=== PATIENT | male | born 1950 | race Caucasian/White ===

== ENCOUNTER 2016-08-16 03:18 | Emergency (ER) | payer MEDICARE, MEDICAID ==
[~2016-08-16] VITALS: Ht 167.6 cm; Wt 78.0 kg
[~2016-08-16 03:18] MED LIST: CELL5 PO; FURO20TA4 PO; HYDR-4134 PO; MAGN400C PO; OMEP20CA10 PO; PANT40TA4 PO; PRAV10TA35 PO; PRED5TAB48 PO; PROG1 PO; TERA2CAP53 PO
[2016-08-16] MEDS ORDERED: ACETAMINOPHEN WITH CODEINE 300/30MG TABLET PO STA (03:52)
[2016-08-16 04:08] LABS: BASOPHILS % 0.9 % (0.0-2.0); EOSINOPHILS % 0.7 % (0.0-5.0); HEMATOCRIT. 43.3 % (42.0-52.0); HEMOGLOBIN. 14.2 g/dL (14.0-18.0); LYMPHOCYTES % 22.7 % (20.0-50.0); MEAN CORPUSCULAR HEMOGLOBIN 29.2 pg (28.0-32.0); MEAN CORPUSCULAR HGB CONC 32.9 g/dL (31.0-37.0); MEAN CORPUSCULAR VOLUME 88.9 fL (80.0-94.0); MEAN PLATELET VOLUME 8.4 fl (7.4-10.4); MONOCYTES % 12.2 % (2.0-8.0); NEUTROPHILS % 63.5 % (40.0-76.0); PLATELET 149 x1000/uL (130-400); RED BLOOD CELL COUNT 4.87 mill/uL (4.7-6.1); RED CELL DISTRIBUTION WIDTH 13.9 % (11.6-14.6); WHITE BLOOD COUNT 4.5 x1000/uL (4.5-11.0)
[2016-08-16 04:22] LABS: ALANINE AMINOTRANSFERASE 21 IU/L (13-61); ALBUMIN 3.7 g/dL (3.4-5.0); ANION GAP 14; CALCIUM 9.8 mg/dL (8.5-10.1); CARBON DIOXIDE 27 mEq/L (21-32); CHLORIDE 105 mEq/L (98-107); INDEX HEMOLYSI 2 (1-3); INDEX ICTERIC 1 (1-4); INDEX LIPEMIC 1 (1-3); UREA NITROGEN BLOOD 17 mg/dL (7-21); eGFR 47 mL/min (>60)
[2016-08-16] MEDS ORDERED: MORPHINE SULFATE 10 MG/ML CPJ IM ONE (05:30)
[2016-08-16 05:47] VITALS: BP 156/81
== END 2016-08-16 06:24 | disposition home or self-care (01) ==
LOC: ER 03:18
DX: R51 Headache (principal); N28.9 Disorder of kidney and ureter, unspecified; I11.9 Hypertensive heart disease without heart failure; Z99.2 Dependence on renal dialysis; Z94.0 Kidney transplant status; Z79.899 Other long term (current) drug therapy
CPT/HCPCS: 36415; 70450; 80053; 85025; 96372; 99285; J2270

== ENCOUNTER 2017-04-19 19:44 | Emergency (ER) | payer MEDICARE, MEDICAID ==
[~2017-04-19] VITALS: Ht 167.6 cm; Wt 75.0 kg
[~2017-04-19 19:44] MED LIST changes: +TERA2CAP4 PO; -TERA2CAP53 PO
[2017-04-20] MEDS ORDERED: ONDANSETRON 4MG ODT PO ONE (01:15)
[2017-04-20] MEDS ORDERED: MORPHINE SULFATE 4 MG/ML CPJ (NOT FOR IM USE) IV ONE (01:15)
[2017-04-20 04:06] VITALS: BP 129/65
== END 2017-04-20 04:08 | disposition home or self-care (01) ==
LOC: ER 19:44
DX: S83.8X1A Sprain of other specified parts of right knee, initial encounter (principal); M25.461 Effusion, right knee; I13.10 Hypertensive heart and chronic kidney disease without heart failure, with stage 1 through stage 4 chronic kidney disease, or unspecified chronic kidney disease; N18.9 Chronic kidney disease, unspecified; Z94.0 Kidney transplant status; Z98.41 Cataract extraction status, right eye; Z98.42 Cataract extraction status, left eye; X58.XXXA Exposure to other specified factors, initial encounter; Y93.01 Activity, walking, marching and hiking; Y92.018 Other place in single-family (private) house as the place of occurrence of the external cause
CPT/HCPCS: 73562; 93970; 96374; 99284; J2270; L1830; Q0162

== ENCOUNTER 2017-09-08 08:24 | Day surgery (SDC) | payer MEDICARE, MEDICAID ==
[~2017-09-08] VITALS: Ht 160 cm; Wt 62.0 kg
[2017-09-08 09:30] LABS: BASOPHILS % 0.5 % (0.0-2.0); EOSINOPHILS % 0.8 % (0.0-5.0); HEMATOCRIT. 41.9 % (42.0-52.0); HEMOGLOBIN. 13.8 g/dL (14.0-18.0); LYMPHOCYTES % 21.9 % (20.0-50.0); MEAN CORPUSCULAR HEMOGLOBIN 29.6 pg (28.0-32.0); MEAN CORPUSCULAR VOLUME 89.8 fL (80.0-94.0); MEAN PLATELET VOLUME 8.1 fl (7.4-10.4); MONOCYTES % 13.9 % (2.0-8.0); NEUTROPHILS % 62.9 % (40.0-76.0); PLATELET 162 x1000/uL (130-400); RED BLOOD CELL COUNT 4.67 mill/uL (4.7-6.1); RED CELL DISTRIBUTION WIDTH 16.1 % (11.6-14.6)
[2017-09-08 09:36] LABS: INR 1.1; PARTIAL THROMBOPLASTIN TIME 27.6 sec (23.4-31.0); PROTHROMBIN TIME 11.9 sec (9.4-11.6)
[2017-09-08] MEDS ORDERED: SIMETHICONE 40 MG/0.6 ML 30ML ONE (09:53)
[2017-09-08] MEDS ORDERED: SODIUM CHLORIDE 0.9% 1,000 ML IV SCH (10:00)
[2017-09-08] MEDS ORDERED: PROPOFOL 200MG/20ML VIAL IV ONE ×2 (11:08→11:43)
[2017-09-08] MEDS ORDERED: ALLO100T PO (14:47)
[2017-09-08] MEDS ORDERED: METO25TA6 PO (14:47)
[2017-09-08] MEDS ORDERED: NEBI5TAB3 PO (14:47)
[2017-09-08] MEDS ORDERED: AMLO10TA80 PO (14:47)
== END 2017-09-08 16:30 | disposition home or self-care (01) ==
LOC: OR 08:24
PROVIDERS: ATTEND Internal Medicine Gastroenterology
DX: D12.0 Benign neoplasm of cecum (principal); D12.3 Benign neoplasm of transverse colon; K52.89 Other specified noninfective gastroenteritis and colitis; F32.89 Other specified depressive episodes; I12.0 Hypertensive chronic kidney disease with stage 5 chronic kidney disease or end stage renal disease; N18.6 End stage renal disease; M19.90 Unspecified osteoarthritis, unspecified site; Z94.0 Kidney transplant status; Z98.42 Cataract extraction status, left eye; Z98.41 Cataract extraction status, right eye; Z79.899 Other long term (current) drug therapy; Z98.890 Other specified postprocedural states
CPT/HCPCS: 36415; 45380; 45385; 80048; 85025; 85610; 85730; 88305; 93005; J7120; J2704

== ENCOUNTER 2018-11-08 09:28 | Day surgery (SDC) | payer MEDICARE, MEDICAID ==
[~2018-11-08] VITALS: Ht 160 cm; Wt 73.0 kg
[~2018-11-08 09:28] MED LIST changes: +ALLO100T PO; +AMLO10TA80 PO; +METO25TA6 PO; +NEBI5TAB3 PO; -OMEP20CA10 PO; +OMEP20CA5 PO
[2018-11-08] MEDS ORDERED: DEXAMETHASONE 4MG/ML 1ML VIAL ONE (11:18)
[2018-11-08] MEDS ORDERED: TRIAMCINOLONE ACETONIDE 40MG/ML 1ML VIAL ONE (11:18)
[2018-11-08] MEDS ORDERED: GENTAMICIN SULF 40MG/ML 2ML VIAL ONE (11:19)
[2018-11-08] MEDS ORDERED: LIDOCAINE HCL 1% 20ML VIAL (Pyxis) INJ ONE (11:19)
[2018-11-08] MEDS ORDERED: BACITRACIN 15GM TUBE TOP ONE (11:19)
[2018-11-08] MEDS ORDERED: BUPIVACAINE HCL/PF 0.5% (5MG/ML) 10ML ONE (11:20)
[2018-11-08] MEDS ORDERED: LACTATED RINGERS 1,000 ML IV SCH (12:15)
[2018-11-08] MEDS ORDERED: MIDAZOLAM HCL 2 MG/2 ML VIAL ONE (13:14)
[2018-11-08] MEDS ORDERED: PROPOFOL 200MG/20ML VIAL IV ONE (13:14)
[2018-11-08] MEDS ORDERED: FENTANYL CITRATE/PF 50MCG/ML 2ML VIAL ONE (13:14)
== END 2018-11-08 16:30 | disposition home or self-care (01) ==
LOC: OR 09:28
PROVIDERS: ATTEND Podiatrist Foot & Ankle Surgery
DX: M79.89 Other specified soft tissue disorders (principal); M72.2 Plantar fascial fibromatosis; M79.605 Pain in left leg; I12.0 Hypertensive chronic kidney disease with stage 5 chronic kidney disease or end stage renal disease; E11.22 Type 2 diabetes mellitus with diabetic chronic kidney disease; N18.6 End stage renal disease; E78.00 Pure hypercholesterolemia, unspecified; Z94.0 Kidney transplant status; Z79.899 Other long term (current) drug therapy; Z83.3 Family history of diabetes mellitus; Z82.49 Family history of ischemic heart disease and other diseases of the circulatory system; Z80.8 Family history of malignant neoplasm of other organs or systems
CPT/HCPCS: 27619; 88304; 88312; J1100; J1580; J2250; J2704; J3010; J3490; J3301

== ENCOUNTER → 2019-10-14 | Outpatient (CLI) | payer MEDICARE, MEDICAID ==
[~2019-10-14] MED LIST changes: +OMEP20CA14 PO; -OMEP20CA5 PO
== END | disposition home or self-care (01) ==
LOC: LAB 10:34
PROVIDERS: ATTEND Internal Medicine Gastroenterology
DX: Z01.818 Encounter for other preprocedural examination (principal); Z11.59 Encounter for screening for other viral diseases
CPT/HCPCS: U0003-CS

== ENCOUNTER 2019-10-18 09:32 | Day surgery (SDC) | payer MEDICARE, MEDICAID ==
[~2019-10-18] VITALS: Ht 160 cm; Wt 72.6 kg
[~2019-10-18 09:32] MED LIST changes: +LACTATED RINGERS 1,000 ML IV SCH
[2019-10-18 10:27] LABS: HEMATOCRIT 41.9 % (42.0-52.0); HEMOGLOBIN 14.1 g/dL (14.0-18.0); MEAN CORPUSCULAR HEMOGLOBIN 30.6 pg (28.0-32.0); MEAN CORPUSCULAR VOLUME 90.8 fL (80.0-94.0); PLATELET 129 x1000/uL (130-400); RED BLOOD CELL COUNT 4.61 mill/uL (4.7-6.1); RED CELL DISTRIBUTION WIDTH 14.8 % (11.6-14.6)
[2019-10-18] MEDS ORDERED: FENTANYL CITRATE/PF 50MCG/ML 2ML VIAL IV PRN (14:30)
[2019-10-18] MEDS ORDERED: DIAZEPAM 5 MG/ML 2ML CPJ IV PRN (14:33)
[2019-10-18] MEDS ORDERED: MIDAZOLAM HCL 5 MG/5 ML VIAL ONE (14:33)
[2019-10-18] MEDS ORDERED: DIPHENHYDRAMINE 50MG/ML VIAL ONE (14:34)
[2019-10-18] MEDS ORDERED: DIAZEPAM 5 MG/ML 2ML CPJ ONE ×2 (14:34→14:44)
[2019-10-18] MEDS ORDERED: FENTANYL CITRATE/PF 50MCG/ML 2ML VIAL ONE ×2 (14:34→14:44)
[2019-10-18] MEDS ORDERED: MIDAZOLAM HCL 5 MG/5 ML VIAL IV PRN (14:48)
[2019-10-18] MEDS ORDERED: SIMETHICONE 80MG TABLET CHEW PO PRN (17:30)
[2019-10-18] MEDS ORDERED: HYDRALAZINE HCL 25MG TABLET PO NR (17:30)
== END 2019-10-18 18:55 | disposition home or self-care (01) ==
LOC: OR 09:32
PROVIDERS: ATTEND Internal Medicine Gastroenterology
DX: Z12.11 Encounter for screening for malignant neoplasm of colon (principal); K64.8 Other hemorrhoids; D12.2 Benign neoplasm of ascending colon; K63.89 Other specified diseases of intestine; I12.0 Hypertensive chronic kidney disease with stage 5 chronic kidney disease or end stage renal disease; N18.6 End stage renal disease; Z79.899 Other long term (current) drug therapy; Z98.890 Other specified postprocedural states; Z86.010 Personal history of colon polyps; Z82.49 Family history of ischemic heart disease and other diseases of the circulatory system; Z83.3 Family history of diabetes mellitus
CPT/HCPCS: 36415; 45380; 80048; 85027; 88305; J2250; J3010; 99152; 99153; J1200; G0500

== ENCOUNTER 2020-01-17 19:42 | Emergency (ER) | payer MEDICARE, MEDICAID ==
[~2020-01-17] VITALS: Ht 162.6 cm; Wt 83.0 kg
[~2020-01-17 19:42] MED LIST changes: -LACTATED RINGERS 1,000 ML IV SCH
[2020-01-17 19:48] VITALS: BP 157/78
[2020-01-17] MEDS ORDERED: SODIUM CHLORIDE 0.9% 500 ML IV ONE (21:30)
[2020-01-17 21:41] LABS: BASOPHILS % 0.3 % (0.0-2.0); EOSINOPHILS % 0.2 % (0.0-5.0); HEMATOCRIT. 41.9 % (42.0-52.0); HEMOGLOBIN. 13.8 g/dL (14.0-18.0); LYMPHOCYTES % 10.2 % (20.0-50.0); MEAN CORPUSCULAR HEMOGLOBIN 29.8 pg (28.0-32.0); MEAN CORPUSCULAR VOLUME 90.9 fL (80.0-94.0); MEAN PLATELET VOLUME 8.3 fl (7.4-10.4); MONOCYTES % 10.4 % (2.0-8.0); NEUTROPHILS % 78.9 % (40.0-76.0); PLATELET 129 x1000/uL (130-400); RED BLOOD CELL COUNT 4.62 mill/uL (4.7-6.1); RED CELL DISTRIBUTION WIDTH 15.3 % (11.6-14.6)
[2020-01-17 21:46] LABS: CHLORIDE 112 mEq/L (98-107)
[2020-01-17] MEDS ORDERED: ASPIRIN 81MG TABLET PO ONE (22:30)
== END 2020-01-17 23:40 | disposition home or self-care (01) ==
LOC: ER 19:42
DX: R00.2 Palpitations (principal); I12.9 Hypertensive chronic kidney disease with stage 1 through stage 4 chronic kidney disease, or unspecified chronic kidney disease; N18.9 Chronic kidney disease, unspecified; Z79.899 Other long term (current) drug therapy; Z94.0 Kidney transplant status; Z98.890 Other specified postprocedural states
CPT/HCPCS: 36415; 71045; 80053; 83880; 84484; 85025; 85610; 93005; 96360; 99285; J7040

== ENCOUNTER 2021-04-23 11:58 | Inpatient (IN) | payer MEDICARE, MEDICAID ==
[~2021-04-23] VITALS: Ht 162.6 cm; Wt 65.3 kg
[~2021-04-23 11:58] MED LIST changes: -PANT40TA4 PO; +PANT40TA51 PO; -PROG1 PO; +TACR1CAP2 PO
[2021-04-23] MEDS ORDERED: SODIUM CHLORIDE 0.9% 1,000 ML IV ONE (12:45)
[2021-04-23 14:18] LABS: HEMATOCRIT. 35.5 % (42.0-52.0); HEMOGLOBIN. 11.4 g/dL (14.0-18.0); MEAN CORPUSCULAR HEMOGLOBIN 30.7 pg (28.0-32.0); MEAN CORPUSCULAR VOLUME 95.2 fL (80.0-94.0); MEAN PLATELET VOLUME 9.7 fl (7.4-10.4); PLATELET 136 x1000/uL (130-400); RED BLOOD CELL COUNT 3.73 mill/uL (4.7-6.1); RED CELL DISTRIBUTION WIDTH 15.8 % (11.6-14.6)
[2021-04-23 14:22] LABS: CHLORIDE 99 mEq/L (98-107)
[2021-04-23 14:53] LABS: NUCLEATED RED BLOOD CELLS 1 /100 WBC
[2021-04-23 14:54] LABS: PLATELET ESTIMATE NORMAL
[2021-04-23 16:58] LABS: CLARITY URINE CLEAR (CLEAR); COLOR URINE YELLOW (YELLOW); KETONES URINE 3+ (NEGATIVE); LEUKOCYTE ESTERASE URINE NEGATIVE (NEGATIVE); NITRITE URINE NEGATIVE (NEGATIVE); OCCULT BLOOD URINE NEGATIVE (NEGATIVE); PROTEIN URINE NEGATIVE (NEGATIVE); SPECIFIC GRAVITY URINE 1.022 (1.005-1.030); UROBILINOGEN URINE 0.2 E.U./dL (0.2-1.0)
[2021-04-23] MEDS ORDERED: DEXTROSE 50% WATER 50ML SYRINGE IV PRN (17:45)
[2021-04-23] MEDS ORDERED: INSULIN LISPRO 100 UNITS/ML SUBCUT SCH ×2 (18:20→23:00)
[2021-04-23] MEDS: ENOXAPARIN 40MG/0.4ML SYR SUBCUT SCH (21:50)
[2021-04-23] MEDS: INSULIN LISPRO 100 UNITS/ML SUBCUT SCH (21:54)
[2021-04-23] MEDS: BLOOD SUGAR DIAGNOSTIC STRIP TEST SCH (22:44)
[2021-04-23] MEDS: INSULIN GLARGINE UD 100 UNITS/ML SYR SUBCUT SCH (23:13)
[2021-04-24] VITALS (11 sets, daily range): BP systolic 108–139; BP diastolic 31–69
[2021-04-24] MEDS: ACETAMINOPHEN 325MG TABLET PO PRN ×2 (05:17→14:22)
[2021-04-24] MEDS: BLOOD SUGAR DIAGNOSTIC STRIP TEST SCH ×4 (07:30→21:00)
[2021-04-24] MEDS: INSULIN LISPRO 100 UNITS/ML SUBCUT SCH ×6 (09:02→21:00)
[2021-04-24 09:21] LABS: BASOPHILS % 0.6 % (0.0-2.0); EOSINOPHILS % 0.1 % (0.0-5.0); HEMOGLOBIN. 11.3 g/dL (14.0-18.0); LYMPHOCYTES % 9.7 % (20.0-50.0); MEAN CORPUSCULAR HEMOGLOBIN 30.6 pg (28.0-32.0); MEAN CORPUSCULAR VOLUME 91.6 fL (80.0-94.0); MEAN PLATELET VOLUME 9.4 fl (7.4-10.4); MONOCYTES % 12.6 % (2.0-8.0); PLATELET 162 x1000/uL (130-400); RED BLOOD CELL COUNT 3.71 mill/uL (4.7-6.1); RED CELL DISTRIBUTION WIDTH 15.8 % (11.6-14.6)
[2021-04-24 09:40] LABS: CHLORIDE 111 mEq/L (98-107)
[2021-04-24] MEDS ORDERED: INSULIN GLARGINE UD 100 UNITS/ML SYR SUBCUT SCH (10:00)
[2021-04-24] MEDS ORDERED: POTASSIUM CHLORIDE 20MEQ TABLET SR PO NR (11:15)
[2021-04-24] MEDS: OMEPRAZOLE 20MG CAPSULE EXTENDED RELEASE PO SCH (12:33)
[2021-04-24] MEDS: METOPROLOL TARTRATE 25MG TABLET PO SCH ×2 (12:33→20:47)
[2021-04-24] MEDS: SODIUM CHLORIDE 0.9% 1,000 ML IV SCH (12:33)
[2021-04-24] MEDS ORDERED: VANCOMYCIN 1250MG in DEXTROSE 5% WATER 250ML IV SCH (13:30)
[2021-04-24] MEDS: PREDNISONE 5MG TABLET PO SCH (16:34)
[2021-04-24] MEDS: KCL 20MEQ/100ML PREMIX 100 ML IV SCH ×2 (16:34→16:56)
[2021-04-24] MEDS: ALLOPURINOL 100 MG TABLET PO SCH (16:34)
[2021-04-24] MEDS: CEFTRIAXONE 1,000 MG in DEXTROSE 5% WATER 50 ML IV SCH (16:55)
[2021-04-24] MEDS: TACROLIMUS 0.5 MG CAPSULE PO SCH (17:07)
[2021-04-24] MEDS: MYCOPHENOLATE SODIUM 180 MG TABLET.DR PO SCH (20:42)
[2021-04-24] MEDS: ENOXAPARIN 40MG/0.4ML SYR SUBCUT SCH ×2 (20:44→20:49)
[2021-04-24] MEDS: ATORVASTATIN CALCIUM 10MG TABLET PO SCH (20:46)
[2021-04-24] MEDS: INSULIN GLARGINE UD 100 UNITS/ML SYR SUBCUT SCH (22:44)
[2021-04-24] MEDS ORDERED: VANCOMYCIN 750 MG PREMIX 150 ML IV SCH (23:30)
[2021-04-25] VITALS (10 sets, daily range): BP systolic 100–169; BP diastolic 42–70
[2021-04-25] MEDS: SODIUM CHLORIDE 0.9% 1,000 ML IV SCH ×3 (00:15→12:45)
[2021-04-25 06:26] LABS: CHLORIDE 111 mEq/L (98-107)
[2021-04-25 06:41] LABS: BASOPHILS % 0.6 % (0.0-2.0); EOSINOPHILS % 0.1 % (0.0-5.0); HEMATOCRIT. 34.2 % (42.0-52.0); HEMOGLOBIN. 11.4 g/dL (14.0-18.0); LYMPHOCYTES % 12.8 % (20.0-50.0); MEAN CORPUSCULAR HEMOGLOBIN 30.9 pg (28.0-32.0); MEAN CORPUSCULAR VOLUME 92.8 fL (80.0-94.0); MEAN PLATELET VOLUME 10.2 fl (7.4-10.4); MONOCYTES % 11.2 % (2.0-8.0); NEUTROPHILS % 75.3 % (40.0-76.0); PLATELET 160 x1000/uL (130-400); RED BLOOD CELL COUNT 3.69 mill/uL (4.7-6.1); RED CELL DISTRIBUTION WIDTH 15.7 % (11.6-14.6)
[2021-04-25] MEDS ORDERED: VANCOMYCIN 750 MG PREMIX 150 ML IV SCH (08:00)
[2021-04-25] MEDS: MYCOPHENOLATE SODIUM 180 MG TABLET.DR PO SCH ×2 (08:20→21:29)
[2021-04-25] MEDS: TACROLIMUS 0.5 MG CAPSULE PO SCH ×2 (08:20→17:03)
[2021-04-25] MEDS: PREDNISONE 5MG TABLET PO SCH (08:20)
[2021-04-25] MEDS: BLOOD SUGAR DIAGNOSTIC STRIP TEST SCH ×4 (08:20→21:32)
[2021-04-25] MEDS: OMEPRAZOLE 20MG CAPSULE EXTENDED RELEASE PO SCH (08:21)
[2021-04-25] MEDS: METOPROLOL TARTRATE 25MG TABLET PO SCH ×2 (08:21→21:00)
[2021-04-25] MEDS: ALLOPURINOL 100 MG TABLET PO SCH (08:21)
[2021-04-25] MEDS: INSULIN LISPRO 100 UNITS/ML SUBCUT SCH ×5 (08:22→21:31)
[2021-04-25] MEDS ORDERED: ONDANSETRON HCL 4MG/2ML INJ IV PRN (09:45)
[2021-04-25] MEDS: GUAIFENESIN 200MG TABLET PO PRN (12:38)
[2021-04-25] MEDS: CEFTRIAXONE 1,000 MG in DEXTROSE 5% WATER 50 ML IV SCH (17:02)
[2021-04-25] MEDS: ACETAMINOPHEN 325MG TABLET PO PRN (17:03)
[2021-04-25] MEDS: VANCOMYCIN 750 MG PREMIX 150 ML IV SCH (21:27)
[2021-04-25] MEDS: ATORVASTATIN CALCIUM 10MG TABLET PO SCH (21:27)
[2021-04-25] MEDS: ENOXAPARIN 40MG/0.4ML SYR SUBCUT SCH (21:32)
[2021-04-25] MEDS: INSULIN GLARGINE UD 100 UNITS/ML SYR SUBCUT SCH (21:33)
[2021-04-26] VITALS: BP 122/48
[2021-04-26 04:00] VITALS: BP 113/38
[2021-04-26] MEDS: BLOOD SUGAR DIAGNOSTIC STRIP TEST SCH ×4 (07:30→21:00)
[2021-04-26 08:00] VITALS: BP 107/56
[2021-04-26] MEDS: INSULIN LISPRO 100 UNITS/ML SUBCUT SCH ×4 (08:00→21:00)
[2021-04-26] MEDS: TACROLIMUS 0.5 MG CAPSULE PO SCH ×2 (08:57→16:01)
[2021-04-26] MEDS: PREDNISONE 5MG TABLET PO SCH (08:57)
[2021-04-26] MEDS: ALLOPURINOL 100 MG TABLET PO SCH (08:57)
[2021-04-26] MEDS: VANCOMYCIN 750 MG PREMIX 150 ML IV SCH ×2 (08:58→22:32)
[2021-04-26] MEDS: OMEPRAZOLE 20MG CAPSULE EXTENDED RELEASE PO SCH (08:58)
[2021-04-26] MEDS: METOPROLOL TARTRATE 25MG TABLET PO SCH ×2 (08:59→22:34)
[2021-04-26] MEDS: MYCOPHENOLATE SODIUM 180 MG TABLET.DR PO SCH ×2 (09:00→21:00)
[2021-04-26 12:00] VITALS: BP 124/36
[2021-04-26 16:00] VITALS: BP 111/44
[2021-04-26] MEDS: CEFTRIAXONE 1,000 MG in DEXTROSE 5% WATER 50 ML IV SCH (16:01)
[2021-04-26 19:41] LABS: CHLORIDE 113 mEq/L (98-107)
[2021-04-26 20:00] VITALS: BP 123/30
[2021-04-26] MEDS: INSULIN GLARGINE UD 100 UNITS/ML SYR SUBCUT SCH (22:32)
[2021-04-26] MEDS: ATORVASTATIN CALCIUM 10MG TABLET PO SCH (22:33)
[2021-04-26] MEDS: ENOXAPARIN 40MG/0.4ML SYR SUBCUT SCH (22:34)
[2021-04-27] VITALS (7 sets, daily range): BP systolic 115–150; BP diastolic 29–71
[2021-04-27] MEDS: INSULIN LISPRO 100 UNITS/ML SUBCUT SCH ×4 (08:00→22:42)
[2021-04-27] MEDS: BLOOD SUGAR DIAGNOSTIC STRIP TEST SCH ×4 (08:14→21:00)
[2021-04-27] MEDS: METOPROLOL TARTRATE 25MG TABLET PO SCH ×2 (08:35→21:00)
[2021-04-27] MEDS: FAMOTIDINE 20MG TABLET PO SCH ×2 (08:36→16:51)
[2021-04-27] MEDS: ALLOPURINOL 100 MG TABLET PO SCH (08:37)
[2021-04-27] MEDS: PREDNISONE 5MG TABLET PO SCH (08:37)
[2021-04-27] MEDS: TACROLIMUS 0.5 MG CAPSULE PO SCH ×2 (08:37→16:51)
[2021-04-27] MEDS: MYCOPHENOLATE SODIUM 180 MG TABLET.DR PO SCH ×2 (08:37→21:00)
[2021-04-27] MEDS: VANCOMYCIN 750 MG PREMIX 150 ML IV SCH ×2 (08:47→21:00)
[2021-04-27 15:32] LABS: BASOPHILS % 0.4 % (0.0-2.0); EOSINOPHILS % 0.3 % (0.0-5.0); HEMATOCRIT. 35.1 % (42.0-52.0); HEMOGLOBIN. 11.3 g/dL (14.0-18.0); LYMPHOCYTES % 18.1 % (20.0-50.0); MEAN CORPUSCULAR HEMOGLOBIN 29.8 pg (28.0-32.0); MEAN CORPUSCULAR VOLUME 92.3 fL (80.0-94.0); MEAN PLATELET VOLUME 9.6 fl (7.4-10.4); MONOCYTES % 13.3 % (2.0-8.0); NEUTROPHILS % 67.9 % (40.0-76.0); PLATELET 183 x1000/uL (130-400); RED CELL DISTRIBUTION WIDTH 15.2 % (11.6-14.6)
[2021-04-27 15:33] LABS: CHLORIDE 111 mEq/L (98-107)
[2021-04-27] MEDS: CEFTRIAXONE 1,000 MG in DEXTROSE 5% WATER 50 ML IV SCH (16:51)
[2021-04-27] MEDS ORDERED: NALOXONE HCL 0.4MG/ML VIAL IV PRN (17:15)
[2021-04-27] MEDS: ENOXAPARIN 40MG/0.4ML SYR SUBCUT SCH (21:00)
[2021-04-27] MEDS: ATORVASTATIN CALCIUM 10MG TABLET PO SCH (21:00)
[2021-04-27] MEDS: INSULIN GLARGINE UD 100 UNITS/ML SYR SUBCUT SCH (22:41)
[2021-04-28] VITALS: BP 112/37
[2021-04-28 04:00] VITALS: BP 120/78
[2021-04-28 06:44] LABS: HEMATOCRIT. 30.1 % (42.0-52.0); HEMOGLOBIN. 10.2 g/dL (14.0-18.0); MEAN CORPUSCULAR HEMOGLOBIN 30.9 pg (28.0-32.0); MEAN CORPUSCULAR VOLUME 91.2 fL (80.0-94.0); PLATELET 176 x1000/uL (130-400); RED CELL DISTRIBUTION WIDTH 15.4 % (11.6-14.6)
[2021-04-28 07:19] LABS: CHLORIDE 108 mEq/L (98-107)
[2021-04-28] MEDS: BLOOD SUGAR DIAGNOSTIC STRIP TEST SCH ×4 (07:58→20:25)
[2021-04-28] MEDS: INSULIN LISPRO 100 UNITS/ML SUBCUT SCH ×4 (07:58→21:13)
[2021-04-28] MEDS: FAMOTIDINE 20MG TABLET PO SCH ×2 (08:14→18:19)
[2021-04-28 08:16] VITALS: BP 166/76
[2021-04-28] MEDS: METOPROLOL TARTRATE 25MG TABLET PO SCH ×2 (08:17→20:19)
[2021-04-28] MEDS: VANCOMYCIN 750 MG PREMIX 150 ML IV SCH (08:17)
[2021-04-28] MEDS: GUAIFENESIN 200MG TABLET PO PRN (08:18)
[2021-04-28] MEDS: ALLOPURINOL 100 MG TABLET PO SCH (08:18)
[2021-04-28] MEDS: ACETAMINOPHEN 325MG TABLET PO PRN (08:18)
[2021-04-28] MEDS: PREDNISONE 5MG TABLET PO SCH (08:18)
[2021-04-28] MEDS: TACROLIMUS 0.5 MG CAPSULE PO SCH ×2 (08:19→18:19)
[2021-04-28] MEDS: MYCOPHENOLATE SODIUM 180 MG TABLET.DR PO SCH ×2 (08:20→20:18)
[2021-04-28 12:00] VITALS: BP 120/68
[2021-04-28 16:01] VITALS: BP 124/66
[2021-04-28 16:59] LABS: NUCLEATED RED BLOOD CELLS 1 /100 WBC; PLATELET ESTIMATE NORMAL
[2021-04-28] MEDS: CEFTRIAXONE 1,000 MG in DEXTROSE 5% WATER 50 ML IV SCH (17:23)
[2021-04-28 20:00] VITALS: BP 137/34
[2021-04-28] MEDS: ATORVASTATIN CALCIUM 10MG TABLET PO SCH (20:18)
[2021-04-28] MEDS: ENOXAPARIN 40MG/0.4ML SYR SUBCUT SCH (20:19)
[2021-04-28] MEDS: INSULIN GLARGINE UD 100 UNITS/ML SYR SUBCUT SCH (21:13)
[2021-04-29] VITALS: BP 145/43
[2021-04-29 04:00] VITALS: BP 141/52
[2021-04-29] MEDS: BLOOD SUGAR DIAGNOSTIC STRIP TEST SCH ×4 (07:30→21:00)
[2021-04-29 08:00] VITALS: BP 153/65
[2021-04-29] MEDS: INSULIN LISPRO 100 UNITS/ML SUBCUT SCH ×6 (08:00→22:44)
[2021-04-29] MEDS: PREDNISONE 5MG TABLET PO SCH (10:45)
[2021-04-29] MEDS: TACROLIMUS 0.5 MG CAPSULE PO SCH ×2 (10:45→17:42)
[2021-04-29] MEDS: FAMOTIDINE 20MG TABLET PO SCH ×2 (10:45→17:38)
[2021-04-29] MEDS: MYCOPHENOLATE SODIUM 180 MG TABLET.DR PO SCH ×2 (10:45→22:42)
[2021-04-29] MEDS: ALLOPURINOL 100 MG TABLET PO SCH (10:45)
[2021-04-29] MEDS: METOPROLOL TARTRATE 25MG TABLET PO SCH ×2 (10:46→22:42)
[2021-04-29 12:00] VITALS: BP 122/52
[2021-04-29] MEDS ORDERED: VANCOMYCIN 1 G PREMIX 200 ML IV SCH (12:00)
[2021-04-29 13:11] LABS: HEMATOCRIT. 31.8 % (42.0-52.0); HEMOGLOBIN. 10.4 g/dL (14.0-18.0); MEAN CORPUSCULAR VOLUME 91.9 fL (80.0-94.0); MEAN PLATELET VOLUME 8.5 fl (7.4-10.4); PLATELET 199 x1000/uL (130-400); RED BLOOD CELL COUNT 3.46 mill/uL (4.7-6.1); RED CELL DISTRIBUTION WIDTH 14.9 % (11.6-14.6)
[2021-04-29 13:34] LABS: CHLORIDE 110 mEq/L (98-107)
[2021-04-29] MEDS: HYDROCODONE/ACETAMINOPHEN 5/325MG TABLET PO PRN ×2 (13:35→17:37)
[2021-04-29 16:00] VITALS: BP 147/113
[2021-04-29] MEDS: CEFTRIAXONE 1,000 MG in DEXTROSE 5% WATER 50 ML IV SCH (17:33)
[2021-04-29 17:40] LABS: PLATELET ESTIMATE NORMAL
[2021-04-29] MEDS ORDERED: POTASSIUM CHLORIDE 20MEQ TABLET SR PO NR (18:15)
[2021-04-29 20:00] VITALS: BP 141/78
[2021-04-29] MEDS ORDERED: INSULIN GLARGINE UD 100 UNITS/ML SYR SUBCUT SCH (22:00)
[2021-04-29] MEDS: ENOXAPARIN 40MG/0.4ML SYR SUBCUT SCH (22:42)
[2021-04-29] MEDS: ATORVASTATIN CALCIUM 10MG TABLET PO SCH (22:42)
[2021-04-30] VITALS: BP 146/74
[2021-04-30] MEDS ORDERED: INSULIN LISPRO 100 UNITS/ML SUBCUT NR (01:30)
[2021-04-30 04:00] VITALS: BP 132/75
[2021-04-30 05:36] LABS: CHLORIDE 110 mEq/L (98-107)
[2021-04-30] MEDS: INSULIN LISPRO 100 UNITS/ML SUBCUT SCH ×5 (07:30→13:34)
[2021-04-30 08:00] VITALS: BP 138/39
[2021-04-30] MEDS: PREDNISONE 5MG TABLET PO SCH (08:24)
[2021-04-30] MEDS: FAMOTIDINE 20MG TABLET PO SCH (08:24)
[2021-04-30] MEDS: ALLOPURINOL 100 MG TABLET PO SCH (08:24)
[2021-04-30] MEDS: TACROLIMUS 0.5 MG CAPSULE PO SCH (08:24)
[2021-04-30] MEDS: METOPROLOL TARTRATE 25MG TABLET PO SCH (08:25)
[2021-04-30] MEDS: BLOOD SUGAR DIAGNOSTIC STRIP TEST SCH ×2 (08:29→13:09)
[2021-04-30] MEDS: MYCOPHENOLATE SODIUM 180 MG TABLET.DR PO SCH (08:40)
[2021-04-30 12:00] VITALS: BP 125/35
[2021-04-30] MEDS ORDERED: INSLIS SUBCUT ×2 (12:28)
[2021-04-30] MEDS ORDERED: LANTUSUD SUBCUT (12:28)
[2021-04-30] MEDS ORDERED: VANCOMYCIN 750 MG PREMIX 150 ML IV SCH (15:00)
[2021-04-30] MEDS ORDERED: VANCOMYCIN 1 G PREMIX 200 ML IV SCH (15:00)
[2021-04-30 16:07] VITALS: BP 138/70
[2021-04-30] MEDS ORDERED: CEFTRIAXONE 1,000 MG in DEXTROSE 5% WATER 50 ML IV SCH (17:00)
== END 2021-04-30 17:30 | disposition home health service (06) | DRG 871 ==
LOC: ER 11:58 → EDBEDREQSVC 19:10 → EDBEDREQTM 20:40 → ENRESERV 04-24 01:43 → 5EST 04-24 03:43
PROVIDERS: ADMIT Internal Medicine; ATTEND Internal Medicine
DX: A41.9 Sepsis, unspecified organism (principal); E43 Unspecified severe protein-calorie malnutrition; N17.9 Acute kidney failure, unspecified; I12.0 Hypertensive chronic kidney disease with stage 5 chronic kidney disease or end stage renal disease; L02.612 Cutaneous abscess of left foot; T86.19 Other complication of kidney transplant; E11.65 Type 2 diabetes mellitus with hyperglycemia; Z60.2 Problems related to living alone; E78.5 Hyperlipidemia, unspecified; E86.0 Dehydration; Z20.822 Contact with and (suspected) exposure to COVID-19; E87.6 Hypokalemia; M10.9 Gout, unspecified; S91.302A Unspecified open wound, left foot, initial encounter; X58.XXXA Exposure to other specified factors, initial encounter; Y93.89 Activity, other specified; Y92.89 Other specified places as the place of occurrence of the external cause; Y99.8 Other external cause status; Y83.0 Surgical operation with transplant of whole organ as the cause of abnormal reaction of the patient, or of later complication, without mention of misadventure at the time of the procedure; Z87.898 Personal history of other specified conditions; E11.628 Type 2 diabetes mellitus with other skin complications; Z68.24 Body mass index [BMI] 24.0-24.9, adult
CPT/HCPCS: 36415; 71045; 73630; 80048; 80053; 80202; 81003; 82962; 83036; 83735; 83880; 84145; 84484; 85025; 85651; 87420; 87426; 87804; 93005; 97161; 97166; 97530; 97535; 99285; J0696; J1650; J1815; J2405; J3370; J3480; J7030; J7060; J7507; J7512; J7517

== ENCOUNTER 2022-08-21 11:56 | Emergency (ER) | payer MEDICARE, MEDICAID ==
[~2022-08-21] VITALS: Ht 167.6 cm; Wt 80.0 kg
[~2022-08-21 11:56] MED LIST changes: -HYDR-4134 PO; +INSLIS SUBCUT; +LANTUSUD SUBCUT
[2022-08-21 13:33] LABS: BASOPHILS % 0.3 % (0.0-2.0); EOSINOPHILS % 0.4 % (0.0-5.0); HEMATOCRIT. 42.2 % (42.0-52.0); HEMOGLOBIN. 13.8 g/dL (14.0-18.0); LYMPHOCYTES % 15.3 % (20.0-50.0); MEAN CORPUSCULAR HEMOGLOBIN 29.6 pg (28.0-32.0); MEAN CORPUSCULAR VOLUME 90.5 fL (80.0-94.0); MEAN PLATELET VOLUME 8.4 fl (7.4-10.4); PLATELET 132 x1000/uL (130-400); RED BLOOD CELL COUNT 4.67 mill/uL (4.7-6.1); RED CELL DISTRIBUTION WIDTH 15.1 % (11.6-14.6)
[2022-08-21 13:44] LABS: PARTIAL THROMBOPLASTIN TIME 27.9 sec (23.4-31.0); PROTHROMBIN TIME 11.2 sec (9.6-11.0)
[2022-08-21 13:50] LABS: CHLORIDE 110 mEq/L (98-107)
[2022-08-21 14:50] VITALS: BP 135/63
[2022-08-21] MEDS ORDERED: APIX5TAB PO (15:00)
[2022-08-21] MEDS ORDERED: APIXABAN 5 MG TABLET PO SCH (17:00)
== END 2022-08-21 15:28 | disposition home or self-care (01) ==
LOC: ER 11:56
DX: I82.401 Acute embolism and thrombosis of unspecified deep veins of right lower extremity (principal); E11.9 Type 2 diabetes mellitus without complications; I10 Essential (primary) hypertension; Z79.899 Other long term (current) drug therapy
CPT/HCPCS: 36415; 80053; 85025; 93005; 93970; 99285

== ENCOUNTER 2023-07-22 13:59 | Emergency (ER) | payer MEDICARE, MEDICAID ==
[~2023-07-22] VITALS: Ht 170.2 cm; Wt 100.0 kg
[~2023-07-22 13:59] MED LIST changes: +APIX5TAB PO; +NEBI5TAB2 PO; -NEBI5TAB3 PO
[2023-07-22 14:02] VITALS: O2SAT 96
[2023-07-22] MEDS: HYDROCODONE/ACETAMINOPHEN 5/325MG TABLET PO STA (14:39)
[2023-07-22 15:05] LABS: BASOPHILS % 0.4 % (0.0-2.0); HEMATOCRIT. 36.5 % (42.0-52.0); HEMOGLOBIN. 12.3 g/dL (14.0-18.0); LYMPHOCYTES % 19.7 % (20.0-50.0); MEAN CORPUSCULAR HEMOGLOBIN 29.9 pg (28.0-32.0); MEAN CORPUSCULAR HGB CONC 33.6 g/dL (31.0-37.0); MEAN CORPUSCULAR VOLUME 89.1 fL (80.0-94.0); MONOCYTES % 10.4 % (2.0-8.0); NEUTROPHILS % 68.5 % (40.0-76.0); PLATELET 192 x1000/uL (130-400); RED BLOOD CELL COUNT 4.09 mill/uL (4.7-6.1); RED CELL DISTRIBUTION WIDTH 14.9 % (11.6-14.6); WHITE BLOOD COUNT 5.2 x1000/uL (4.5-11.0)
[2023-07-22 15:19] LABS: INR 1.1; PROTHROMBIN TIME 12.4 sec (9.6-11.0)
[2023-07-22 15:24] LABS: ALANINE AMINOTRANSFERASE 38 IU/L (10-49); ALBUMIN 3.9 g/dL (3.2-4.8); ASPARTATE AMINOTRANSFERASE 44 IU/L (<34); BILIRUBIN TOTAL 0.8 mg/dL (0.1-1.0); CALCIUM 8.8 mg/dL (8.7-10.4); CARBON DIOXIDE 22 mEq/L (21-32); CHLORIDE 107 mEq/L (98-107); CREATININE 1.5 mg/dL (0.6-1.3); GLUCOSE 111 mg/dL (70-105); POTASSIUM 3.5 mEq/L (3.5-5.1); PROTEIN TOTAL 6.6 g/dL (6.0-8.3); SODIUM 139 mEq/L (136-145); UREA NITROGEN BLOOD 24 mg/dL (9-23)
[2023-07-22] MEDS ORDERED: ACET-2708 MT (16:42)
[2023-07-22] MEDS ORDERED: TRAM50TA3 MT (16:43)
[2023-07-22] MEDS ORDERED: TRAM100C3 MT (16:52)
[2023-07-22 17:17] VITALS: BP 136/86; PULSE 81; RESP 16; TEMP 98.7
[2023-07-22] MEDS ORDERED: IOHEXOL-350 100 ML BOTTLE ONE (23:51)
== END 2023-07-22 19:13 | disposition home or self-care (01) ==
LOC: ER 13:59
DX: M79.605 Pain in left leg (principal); I10 Essential (primary) hypertension; E78.00 Pure hypercholesterolemia, unspecified; E11.9 Type 2 diabetes mellitus without complications; Z98.890 Other specified postprocedural states; Z79.899 Other long term (current) drug therapy
CPT/HCPCS: 99285; 73706; 80053; 85025; 85610; 36415; 93922; Q9967